=== PATIENT | female | born 1995 | race African-American/Black ===

== ENCOUNTER 2016-08-27 17:57 | Emergency (ER) | payer SELFPAY ==
[~2016-08-27] VITALS: Ht 170.2 cm; Wt 83.0 kg
[2016-08-27 19:15] LABS: HCG UR OBC PASS
[2016-08-27 19:49] VITALS: BP 130/70
== END 2016-08-27 20:00 | disposition home or self-care (01) ==
LOC: ED 19:50
DX: S39.012A Strain of muscle, fascia and tendon of lower back, initial encounter (principal); X58.XXXA Exposure to other specified factors, initial encounter; Y93.89 Activity, other specified; Y99.8 Other external cause status; Y92.89 Other specified places as the place of occurrence of the external cause
CPT/HCPCS: 81003; 81025